=== PATIENT | female | born 1960 | race African-American/Black ===

== ENCOUNTER → 2017-03-11 | Outpatient (CLI) | payer BC ==
[~2017-03-11] MED LIST: ALBUTEROL INH; ALBUTEROL MININEB IH; ALBUTEROL17 G1 IH; ALBUTEROL17 GM INH; ATENOLOL PO; ATROVENT IH; AZITHROMYCIN250 MG PO; BENZONATATE PO; CALAN PO; CARAFATE1 G PO; CARDURA PO; CARDURA8 MG PO; CHLORTHALIDONE25 MG PO; CIPRO PO; CLONIDINE HCL0.1 MG PO; CLONIDINE PO; DUO-NEB INH; ESTRACE PO; FLEXERIL10 MG PO; HCTZ PO; HYCODAN60 ML 5MG/ PO; HYDROCODON-ACE1 EAC9; KCL; KCL PO; LASIX PO; LISINOPRIL PO; MEDROL DOSEPAK4 MG PO; MOTRIN PO; NAPROSYN500 MG PO; NASONEX17 GM; NORCO1 TAB 10/3 PO; PREDNISONE PO; PREDNISONE TAPER PO; PRINIVIL40 MG PO; RANITIDINE HCL150 M1 PO; REGLAN10 MG PO; ROBAXIN PO; SPIRONOLACTONE100 MG PO; SURFAK PO; SYMBICORT80 INH; TOPROL XL 50 MG50 MG PO; TOPROL XL PO; VALTREX PO; VIBRAMYCIN100 M1 PO; VICODIN 5/1 TAB 5/50 PO; VITAMIN D31000 UNIT PO; VITAMIN D5000 UNIT PO; VOLTAREN50 MG PO; ZITHROMAX PO; ZYRTEC10 M2 PO; [UNRECOGNIZED DRUG - OTHER] PO
--- NOTE | ~2017-03-11 | CT2 ---
[facility] A Service of [facility] RADIOLOGY TEXT RESULTS PATIENT: KOFI DOLL LOCATION: CCAT : 60 UNIT #: [id number] AGE: [address]: Zacarias García MD SEX: F ORDER DR: [id number] [facility] [address] [place], [place] [address] [id number] O MR#: [id number] Acc #: [id number] NAME: KOFI DOLL : 1960 SEX: F STUDY DATE/TIME: 03/11/2017 9:08 UNIT: [facility]AT ROOM: STUDY DESCRIPTION: CT Abd and Pelv W Cont Attending Physician: Zacarias García Jr., M.D. Referring Physician: Zacarias García Jr., M.D. Ordering Physician: Zacarias García Jr., M.D. Primary Care Physician: Generic Doctor Not In System MEDICAL IMAGING REPORT This report is preliminary unless electronic signature is present EXAM CT abdomen and pelvis with contrast INDICATIONS Upper to mid abdominal pain and constipation for the past month. PROCEDURE Contrast-enhanced CT of the abdomen and pelvis 100 mL of Isovue-370. This CT exam was performed with one or more of the following radiation dose reduction techniques: automatic exposure control, adjustment of mA and/or kV according to patient size, and iterative reconstruction. COMPARISON 05/30/2015 FINDINGS Abdomen with contrast: Included lung bases are clear. The liver is borderline enlarged at 19 cm. No liver lesion. Spleen, kidneys, adrenal glands, pancreas, gallbladder unremarkable. There is moderate colonic stool burden. Bowel loops are nondilated. 3.2 cm fat-containing supraumbilical midline hernia has a neck of 1.5 cm. Pelvis with contrast: Previous hysterectomy. No pelvic mass. No aggressive appearing bone lesion. IMPRESSION 1. Constipation. 2. Small fat-containing supraumbilical midline hernia. 3. Borderline hepatomegaly. Dictated by... [facility] A Service [facility] RADIOLOGY TEXT RESULTS PATIENT: KOFI DOLL LOCATION: CCAT : 60 UNIT #: [id number] AGE: [address]: Zacarias García MD SEX: F ORDER DR: Albert Ceron M.D. THIS IS AN ELECTRONICALLY VERIFIED REPORT Albert Ceron M.D. at 03/14/2017 7:43 AM GUILLERMO/madelin TD: 03/11/2017 12:34 JOB #: [id number] MEDICAL IMAGING REPORT Page 1 of 1 COPY
[2017-03-11 08:21] LABS: POC - CREATININE 0.62 mg/dL (0.44-1.03); POC - GFR >60.0 mL/min (>60)
== END | disposition home or self-care (01) ==
LOC: CCAT 07:46
PROVIDERS: Surgery
DX: R10.9 Unspecified abdominal pain (principal); E66.01 Morbid (severe) obesity due to excess calories; R63.4 Abnormal weight loss; K59.09 Other constipation; K42.9 Umbilical hernia without obstruction or gangrene
CPT/HCPCS: 74177; 82565; Q9967

== ENCOUNTER → 2017-05-06 | Day surgery (SDC) | payer BC ==
--- NOTE | ~2017-05-06 | OR ---
Unit #: [id number] #: [id number] Patient: KOFI DOLL [id number] [address] [place], [place] [address] [id number] O MR#: [id number] NAME: KOFI DOLL ROOM: Date of Procedure: 05/06/2017 Admission Date: 05/06/2017 Surgeon: Zacarias García Jr., M.D. : 1960 Attending Physician: Zacarias García Jr., M.D. Referring Physician: Zacarias García Jr., M.D. Primary Care Physician: Jammie Bustamante P.A.-C. OPERATIVE REPORT INDICATIONS FOR PROCEDURE The patient is a 56-year-old black female, who has had chronic abdominal pain. Recently presented to the office with complaints of this and progressive constipation. It was felt the patient needed a colonoscopy. She has had no recent scopes. PREOPERATIVE DIAGNOSIS Progressive constipation, rule out obstruction. POSTOPERATIVE DIAGNOSIS Diverticulosis of left colon with tortuous colon. ANESTHESIA MAC anesthesia. PROCEDURE PERFORMED Flexible colonoscopy to the distal ilium. DESCRIPTION OF PROCEDURE The patient was positioned in Tan position with left side down. After being given MAC anesthesia, digital rectal examination was performed, which revealed no palpable mass or tenderness. No blood or stool within the rectal ampulla. The Olympus colonoscope was advanced through the anal canal up the rectum and retroflexed down to the area of the anorectal region. There were a few small internal hemorrhoids, but no major hemorrhoids and no evidence of any fissures. The scope was then straightened and advanced up the rectosigmoid, in the sigmoid and descending colon areas, where there were multiple diverticula. Multiple manipulations were required to advance the scope around the splenic flexure and the transverse colon, around hepatic flexure and ascending colon, down the area of the cecum. Light from the tip of the scope could be seen transilluminating through right lower quadrant abdominal wall area. The scope was advanced up the distal ileum approximately 10 to 12 inches. There was no evidence of any ileitis or inflammatory bowel disease. The scope was slowly removed. There were no tumors, polyps, cancer, or AVMs. No evidence of any colitis or acute diverticulitis except for noting multiple diverticula with some tortuosity of the colon. There were no specific abnormalities. No evidence of any obstruction. The scope was removed. The patient tolerated the procedure well and discharged in satisfactory condition. Unit #: [id number] #: [id number] Patient: KOFI DOLL Dictated by... Zacarias García Jr. MStone CADET/jax TD: 05/07/2017 14:29 JOB #: [id number] OPERATIVE REPORT Page 1 of 1 X Zacarias García MD X PROCEDURE OPERATIVE NOTE
== END | disposition home or self-care (01) ==
LOC: COPS 11:14
DX: K57.30 Diverticulosis of large intestine without perforation or abscess without bleeding (principal); J44.9 Chronic obstructive pulmonary disease, unspecified; F17.210 Nicotine dependence, cigarettes, uncomplicated; I10 Essential (primary) hypertension; E66.01 Morbid (severe) obesity due to excess calories; G47.33 Obstructive sleep apnea (adult) (pediatric); I48.91 Unspecified atrial fibrillation; J45.909 Unspecified asthma, uncomplicated; Z90.710 Acquired absence of both cervix and uterus; Z98.890 Other specified postprocedural states; Z68.35 Body mass index [BMI] 35.0-35.9, adult; Z79.899 Other long term (current) drug therapy; Z88.8 Allergy status to other drugs, medicaments and biological substances; Z83.3 Family history of diabetes mellitus
CPT/HCPCS: J2250

== ENCOUNTER 2017-05-24 14:49 | Emergency (ER) | payer BC | END 2017-05-24 16:13 | disposition home or self-care (01) | LOC: SED 14:49 | DX: M25.561 Pain in right knee (principal); G89.29 Other chronic pain; I10 Essential (primary) hypertension; J45.909 Unspecified asthma, uncomplicated; Z90.49 Acquired absence of other specified parts of digestive tract; Z90.710 Acquired absence of both cervix and uterus; Z88.8 Allergy status to other drugs, medicaments and biological substances | CPT/HCPCS: 29530; 96372; 99283; J1885 ==